=== PATIENT | female | born 1935 | race Caucasian/White ===

== ENCOUNTER 2023-12-22 08:50 | Outpatient (CLI) | payer BC, SELFPAY ==
[2023-12-22] VITALS (11 sets, daily range): BP systolic 94–138; BP diastolic 48–69; PULSE 62–75; RESP 14–18; TEMP 36.6–36.7; O2SAT 96–100; BMI 23.6
[2023-12-22 09:46] LABS: Hematocrit 27.3 % (37.0-47.0); Hemoglobin 8.1 g/dL (12.2-16.2)
[2023-12-22] MEDS: 0.9 % SODIUM CHLORIDE 250 ML 25 ML IV (11:12)
== END 2023-12-22 14:50 | disposition home or self-care (01) ==
LOC: INF 09:00
PROVIDERS: PCP Family Medicine; Visit Provider Family Medicine
DX: R42 Dizziness and giddiness (principal)
CPT/HCPCS: 36430; 85014; 85018; 86850; P9016